=== PATIENT | female | born 1935 | race Caucasian/White ===

== ENCOUNTER 2016-11-28 11:30 | Observation (INO) | payer MEDICARE ==
[2016-11-28] VITALS (10 sets, daily range): BP systolic 128–195; BP diastolic 58–101; PULSE 70–82; RESP 12–22; O2SAT 95–100
[~2016-11-28] VITALS: Ht 177.8 cm; Wt 61.4 kg
[~2016-11-28 11:30] MED LIST: ATEN25TA PO; ATRV10T PO; AZU500 PO; ESCI5TAB10 PO; MIDO5TAB PO; RIVA20TA PO
--- NOTE | 2016-11-28 11:36 | ED.REPORT ---
HPI-Syncope Date of Service Nov 28, 2016 ED Provider: Yaya Tejada Patient is an 81 year old female with a history of syncope and dementia who presents to the ED via EMS s/p a syncopal episode. She lost consciousness while sitting but did not require CPR as she came to when she was laid down. Per family, she was slightly weak today. She denies feeling ill recently or hitting her head. She denies vomiting, pain, or any other symptoms. She was recently [facility]. Per , since her release 4 days ago she hasn't wanted to get out of bed or walk around. Per she has been saying she wants to . is adamant that she not get a CT head scan. Nursing Notes Stated Complaint: SYNCOPAL Chief Complaint: General Complaint Nursing Notes Reviewed: Yes Allergies: Coded Allergies: Cephalexin Monohydrate (Verified Allergy, Severe, rash and hives, 11/28/16) budesonide (Verified Adverse Reaction, Severe, confusion and moaning, 11/28) meloxicam (Verified Adverse Reaction, Severe, caused sig. flare of colitis , 11/28/16) NSAIDS (Non-Steroidal Anti-Inflamma (Verified Adverse Reaction, Unknown, ) Scheduled Atenolol (Atenolol) 25 Mg Tablet 25 MG PO DAILY Atorvastatin (Lipitor) 10 Mg Tab 10 MG PO HS Escitalopram Oxalate (Escitalopram Oxalate) 5 Mg Tablet 10 MG PO QAM Midodrine (Midodrine) 5 Mg Tablet 5 MG PO TID Rivaroxaban (Xarelto) 20 Mg Tablet 20 MG PO HS Sulfasalazine (Sulfasalazine) 500 Mg Tablet 500 MG PO BID General Time Seen by Provider: 11:35 Chief Complaint Became unresponsive Hx Obtained From: Spouse, EMS Arrived By: Ambulance Similar Sx Previous: Yes Past Medical History Past Medical History Notes: Previous suicide attempt with poly drug overdose Correction to medication list per : Talopram 10mg not 5mg Past Medical History Hypertension Collagenous Colitis Paroxysmal a-fib on Xarelto Right bundle-branch block Hyperlipidemia Anxiety Severe Depression History of posterior vitreous detachment Dementia Past Surgical History Right clavicle surgery Tonsillectomy Hysterectomy Left knee Reports: Appendectomy, Cataract surgery, Hysterectomy, Tonsillectomy Reports: Pacemaker insertion Family History Noncontributory Smoking History Former Smoker Social History The patient lives on [place] with her . Previous suicide attempt via drug OD. Alcohol Use: Denies alcohol use Drug Use: Denies drug use Other Social History: Good social support, Ambulatory Status Independent Review of Systems Unable to Obtain ROS Mental status Physical Exam Initial Vital Signs Vital Signs (First) Date Time Temp Pulse Resp B/P Pulse Ox O2 Delivery O2 Flow Rate FiO2 11/28/16 11:35 36.5 70 17 195/85 99 Room Air Initial VS: Reviewed Head / Eyes: Atraumatic, Normocephalic Neck: Full range of motion Skin: Warm, Dry General/Constitutional: Awake, Well developed Alertness: Positive: Confused Respiratory / Chest: No respiratory distress Cardiovascular: Heart rate NL Lower Extremity / Pelvis / MS: Atraumatic, No edema Neurologic: Speech NL, CN II - XII intact Mental Status: Positive: Confused Left Foot: Positive: Ecchymosis present Bruise on outside of L foot Interpretation & Diagnostics Lab Results Interpretation Result Diagram: 11/28/16 1211 11/28/16 1211 Test 11/28/16 12:11 11/28/16 12:22 White Blood Count 6.4th/mm3 (3.8-10.1) Red Blood Count 4.30mil/mm3 (3.90-5.20) Hemoglobin 13.4g/dL (12.0-15.6) Hematocrit 38.9% (35.0-46.0) Mean Corpuscular Volume 90.5fL (81-100) Mean Corpuscular Hemoglobin 31.2pg (27.0-35.0) Mean Corpuscular Hemoglobin Concent 34.4% (32.0-37.0) Red Cell Distribution Width 12.8% (12.3-15.4) Platelet Count 274bil/L (150-400) Neutrophils (%) (Auto) 62.9% (40-74) Lymphocytes (%) (Auto) 21.7% (14-46) Monocytes (%) (Auto) 12.6% (4-12) Eosinophils (%) (Auto) 0.3% (0-5) Basophils (%) (Auto) 0.6% (0-3) Sodium Level 139mEq/L (134-144) Potassium Level 4.1mEq/L (3.5-5.2) Chloride Level 100mEq/L (97-108) Carbon Dioxide Level 21mmol/L (18-29) Blood Urea Nitrogen 19mg/dL (8-27) Creatinine 0.70mg/dL (0.57-1.00) Estimat Glomerular Filtration Rate 115mL/min (>59) Glucose Level 101mg/dL (60-99) Calcium Level 9.5mg/dL (8.5-10.1) Magnesium Level 2.1mg/dL (1.6-2.6) Total Bilirubin 0.6mg/dL (0.0-1.2) Aspartate Amino Transf (AST/SGOT) 18U/L (0-50) Alanine Aminotransferase (ALT/SGPT) 19U/L (0-32) Alkaline Phosphatase 60U/L (25-165) Troponin T 0.010ug/L (0.0-0.011) Total Protein 6.9g/dL (6.4-8.4) Albumin 3.8g/dL (3.4-5.0) Urine Color Straw (YELLOW) Urine Appearance Hazy (CLEAR,HAZY) Urine pH 7.5 (5.0-8.0) Urine Specific [place] 1.010 (1.003-1.035) Urine Protein Negativemg/dL (NEG,TRACE) Urine Glucose (UA) Negativemg/dL (NEGATIVE) Urine Ketones Negativemg/dL (NEGATIVE) Urine Occult Blood Negative (NEGATIVE) Urine Nitrite Negative (NEGATIVE) Urine Bilirubin Negative (NEGATIVE) Urine Urobilinogen Normalmg/dL (NORMAL) Urine Leukocyte Esterase Negative (NEGATIVE) Urine RBC 0-2/hpf (0-2) Urine WBC 6-10/hpf (0-5) Urine Epithelial Cells Occasional/hpf (NONE-MOD) Urine Crystals None seen (NONE SEEN) Urine Bacteria Moderate/hpf (NONE-FEW) Urine Hyaline Casts None/lpf (NONE) Urine Granular Casts None seen (NONE SEEN) Urine Waxy Casts None seen (NONE SEEN) Urine Red Blood Cell Casts None seen (NONE SEEN) Urine White Blood Cell Casts None seen (NONE SEEN) Urine Mucus None seen (None Seen) Urine Trichomonas None seen (NONE SEEN) Urine Yeast None (NONE SEEN) Urinalysis Comment None Urine Culture Reflexed Indicated ECG Interpretation ECG Interpretation: Paced Rate 70 RBBB Time: 12:58 Interpreted by: ED physician X-Ray Chest Interpretation Chest Xray Interpretation: IMPRESSION: No acute cardiopulmonary disease. Dictated by: Román UMANA Interpreted: El Morrow MD on 11/28/2016 at 12:49 Transcribed by: MARCO on 11/28/2016 at 12:49 View: Portable Interpretation / Wet Read by: Interpret - Radiologist Re-Eval/Medical Decision Med Decision/Clinical Course Patient has had multiple visits for syncope as well as delirium and dementia, today has some question of urinary tract infection on a catheterized urinalysis in the way of 6-10 white cells and presence of moderate bacteria. This may account for some of the patient's symptoms. After discussion with the palliative care was consulted and ultimately recommend admit. Plan patient will be started on Bactrim and given some IV hydration. Source of Hx: Old records Re-Evaluation/Progress #1: Time of Eval: 13:44 Re-Evaluation/Progress Note: Discussed patient's case with . Re-Evaluation/Progress #2: Time of Eval: 16:36 Re-Evaluation/Progress Note: Discussed plan for admission with patient's . He understands and agrees with plan. All questions addressed at this time. Consultation #1: Referral / Consult Name: Vijay Sharma Call Returned at: 14:34 Note: Discussed patient's case. Will call back. Consultation #2: Referral / Consult Name: Vijay Sharma Call Returned at: 15:54 Blow Molding Machine Tender: Will see patient Note: Zachary is in department to see patient and discuss plan of action with patient's . after seeing the patient recommends admission Consultation #3: Referral / Consult Name: Almaz Lopez MD Consulted With: Hospitalist Call Returned at: 16:14 Blow Molding Machine Tender: Will see patient, Agrees with eval, Agrees with plan, Accepts admit Note: Discussed patient's case. Accepts admit. Counseled Regarding: Diagnosis, Lab results, Need for admission Discharge & Departure Impression: Primary Impression: Altered mental status Additional Impressions: Syncope UTI (urinary tract infection) Disposition: ADMITTED TO HOSPITAL Referrals: Kenneth Randhawa MD (PCP) Scribe Attestation Portions of this note were transcribed by Aleksandra Carrasco. I, Dr. Tejada personally performed the history, physical exam and medical decision-making; I reviewed and confirmed the accuracy of the information in the transcribed note. Signed by: Aleksandra Carrasco 11/28/16, [id number] copies to: Kenneth Randhawa MD, Timothy S DO Nov 28, 2016 11:36 ALEKSANDRA CARRASCO Nov 28, 2016 12:04
[2016-11-28 12:22] LABS: BASOPHILS % (AUTO) 0.6 % (0-3); EOSINOPHILS % (AUTO) 0.3 % (0-5); MONOCYTES % (AUTO) 12.6 % (4-12); Mean Corpuscular Hemoglobin 31.2 pg (27.0-35.0); Mean Corpuscular Volume 90.5 fL (81-100); NEUTROPHILS % (AUTO) 62.9 % (40-74); Platelet Count 274 bil/L (150-400)
[2016-11-28 12:42] LABS: APPEARANCE,URINE HAZY (CLEAR,HAZY); COLOR,URINE STRAW (YELLOW); OCCULT BLOOD,URINE NEGATIVE (NEGATIVE); PH,URINE 7.5 (5.0-8.0); UROBILINOGEN,URINE NORMAL (NORMAL)
--- NOTE | 2016-11-28 12:50 | DRSVH ---
PROCEDURE: X-RAY CHEST ONE VIEW, PORTABLE ([id number]) INDICATIONS: weakness TECHNIQUE: One view of the chest was acquired. COMPARISON: [facility], CR, XR CHEST 1VW (PORTABLE), 10/31/2016, 16:48. FINDINGS: Surgical changes and devices: Stable positioning of dual chamber left cardiac pacer and fixation hard cancino involving the right clavicle. Lungs and pleura: No pleural effusions or pneumothorax. Lungs are clear. Mediastinum: Mediastinal contours appear normal. Heart size is normal. Bones and chest wall: No suspicious bony lesions. Overlying soft tissues appear unremarkable. IMPRESSION: No acute cardiopulmonary disease. Dictated by: Román Finch RREduard Interpreted: El Morrow MD on 11/28/2016 at 12:49 Transcribed by: MARCO on 11/28/2016 at 12:49 Approved by: El Morrow M.D. on 12/02/2016 at 11:33
[2016-11-28 13:19] LABS: Magnesium 2.1 mg/dL (1.6-2.6); TROPONIN T 0.01 ug/L (0.0-0.011)
[2016-11-28] MEDS ORDERED: Trimethoprim-Sulfa 160 mg-800 mg Tablet PO ONE (16:15)
[2016-11-28] MEDS ORDERED: 0.9% Sodium Chloride 1,000 ML IV ONE (16:15)
[2016-11-28] MEDS ORDERED: Alum-Mag Hydrox-Simeth 30 mL Suspension PO PRN (16:35)
[2016-11-28] MEDS ORDERED: Ondansetron 2 mg/mL 2 mL Inj IVPUSH PRN (16:35)
--- NOTE | 2016-11-28 18:13 | PCM.CONPAL ---
Date of Service Nov 28, 2016 Date of Hospital Admission: Nov 28, 2016 Date of Palliative Consult: Nov 28, 2016 Requesting Provider: Yaya Tejada DO Comment: MD/ ED asked PC to see patient at 's request; Reason Palliative Care Consult: Goals of Care Discussion, Other (help with placement decisions/ possible hospice) Hospital Unit @time of consult: Emergency Department Palliative Care Recommendation This is an 81 F brought to ED per 911 due to repeated episodes of syncope today , supposed hypotension in the home. see multiple notes from previous admissions/ observations in [facility]. Family/ unable to move her, provide safe care. Summary of palliative recommendations: Per prior palliative care assessments in combination with today's visit: Depression- (per Dr. Carvalho 09/28): some concern with sense of worsening with antidepressants. Consider restarting antipsychotic as mood stabilizer. She has no psychotic sx. Would consider ongoing therapy. Would continue with ongoing psychiatric follow- up. Consider complete outpatient neuro psych evaluation 11/28/16: Revisit concern about increased/ continued depression. Follow up on neuropsych eval to see if this was done. Cognition- (per Dr. Carvalho 09/28): I think there is more of a cognitive decline and neurodegenerative process to her depression and disability than thought. Will begin aricept at 5 mg daily with goal to have this increased to 10 mg if no SE after a few weeks. Still may benefit from low dose methylphenidate-like 5 mg QAM but would postpone 11/28/16: Pt is calm and able to answer my questions appropriately. I see notes regarding evaluation for dementia recently which was negative. Symptoms continue to be confounding and related to syncopal/hemodynamic issues. Continue to monitor. Gait instability/ risk of falls from possible syncope. - Apparently interrogation of pacemaker does not support cardiac arrhythmia as cause of syncope. Does have orthostatic drop. Consider tolerating higher BP at baseline. Some concern that worsened orthostasis may come with worsened diarrhea. Need confirmation from cardiology re opinion on syncope Consider use of florinef. Diarrhea with past history of collagenous colitis sulfasalazine has been restarted. We will monitor diarrhea. No BM now for 3 days Goals of care-both and daughters are hopefully patient can be at SNF for a period of time. This would ensure medication compliance. She might also qualify for mental health follow-up in retirement.. Family also believes that eventually patient would go home with assistance of caregivers rather then assisted care. Patient would benefit from assisted care setting due to increase in socialization and assurance of medication compliance -DPOA/Advanced Directives/POLST- states advanced directive completed for both of them and both indicate request for no long-term heroics. Reviewed question of CODE STATUS in hospital and he believes it appropriate for DNR/DNI and he states this is based on the quality of her life at present. -Disposition: Pt to be admitted per Dr. Tejada; patient will be followed by palliative care team during this admission. Patient Goals: 1. Patient wants mostly to be home but is adamant that he can no longer care for her. They are looking for transition to LTC. asking for hospice but it is unclear, doubtful, that she meets criteria at this time . Problems: End of Life Preferences no life-prolonging interventions beyond basic treatment for reversible conditions. Goals of Care to have care managed by a skilled team if possible; family requesting assistance with progressive symptom and care needs. Disposition possible placement vs home with additional care providers. Resuscitation Status Resuscitation Status: DNR/DNI:Do Not Resuscitate/Intubate . Pain: Mild Symptom management: Depression, Agitation Pt History History of Present Illness 81 F brought to ED per 911 due to repeated episodes of syncope, hypotension in the home. see multiple notes from previous admissions/observations in [facility]. Family/ unable to move her, provide safe care. Pt seen by Dr. Carvalho in September--see PC recommendations listed again in this note above. 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 Carvalho's consult from September: 61 yrs EXsmoker-quit 10-12 yrs ago. ETOH: usually 3 bvg/night but stopped totally 3 yrs ago. Her continues to drink mod to excess in the concepcion as per his daughters. some concern for his care for patient after he starts drinking. No hx of violence but he can get impatient. Living Situation: recently ( 4 days ago) discharged from [facility], returning home with . Responsive Patient Symptoms Pain (current): None Pain (minimum): None Pain (maximium): Mild Tiredness/Fatigue: Mild Nausea: None Depression: Moderate (severe at times per ; has asked him to leave gun where she can reach it.) Anxiety: Mild Drowsiness/Sleepiness: Mild Anorexia: None Shortness of Breath: None Delirium multiple records point to delirium with outbursts in past records--not present at this time. Palliative Performance Scale PPS Patient Status: Baseline PPS Ambulation: Mainly Sit/Lie PPS Activity: Unable to do any work PPS Self-Care: Occasional assistance necessary PPS Intake: Normal or reduced PPS Conscious Level: Full or confusion Performance Scale: 50% ADLs ADL Patient Status: Current ADL Ambulation: Mainly Bed ADL Dressing: Considerable assistance required ADL Feeding: Considerable assistance required ADL Hygene/bathing: Considerable assistance required ADL Transfers: Considerable assistance required Allergy Allergies Reviewed: Yes Medications Current Medications: Current Medications Sodium Chloride 1,000 ml @ 100 mls/hr Q10H IV; Start 11/28/16 at 16:15 Scheduled Atenolol (Atenolol) 25 Mg Tablet 25 MG PO DAILY Atorvastatin (Lipitor) 10 Mg Tab 10 MG PO HS Escitalopram Oxalate (Escitalopram Oxalate) 5 Mg Tablet 10 MG PO QAM Midodrine (Midodrine) 5 Mg Tablet 5 MG PO DAILY Rivaroxaban (Xarelto) 20 Mg Tablet 20 MG PO HS Sulfasalazine (Sulfasalazine) 500 Mg Tablet 500 MG PO BID Scheduled PRN Ondansetron (Zofran) 4 Mg Tablet 4 MG PO Q4H PRN PRN For Nausea Objective Findings Exam Vital Sign - Last Date Time Temp Pulse Resp B/P Pulse Ox O2 Delivery O2 Flow Rate FiO2 11/28/16 15:00 71 12 128/58 98 Room Air 11/28/16 11:35 36.5 General: Alert/Oriented x3 HEENT: Atraumatic, Scleral Anicteric Heart: Exam Unremarkable Lungs: Clear to Auscultation Abdomen: Benign Neuro: Other Extremities: Pulses Palpable x4 Lab/Diagnostics Lab and Imaging results reviewed in detail in EMR. Patient/Family Conference Members Present Family Members Present patient and in ED. Medical Team Members Present? Vijay VASQUEZ, Dr. Serjio Montgomery Discussion/Goals of Care Discussion Reason for consult-goals of care Interview with her in ED 81 yo female patient previously established with Dr. Cecilia Randhawa, now with Dr. More for Primary Care who was admitted through the ER after a falls/syncope at home. Listed, prior admissions including a psych adm in March. Her states that the patient has been steadily declining since she had her pacemaker placed about 14 months ago. 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 She sleeps for 10 hours-has breakfast and then sits in her recliner and does not interact. She seems to perseverate on being avoided because she smells or something she did. Her family feels her meds have only made her worse. 1 daughter thinks the quetiapine helped the pt not perseverate and focus. She has hx of syncope and labile BP. She had passed out--while sitting a few times since fall. The notes that during these episodes, like the one earlier today, her BP is low-- like 60s/40s he states-- but this is resolved now in the ED. Pt and report continued good appetite. Used to walk 5 miles in a day and now can barely walk 100 ft and that very slowly and with a walker and somewhat shuffling. No other specific complaint. She has a long hx of colitis-dx collagenous about 4-5 years ago. She had been on sulfasalazine for years--stopped about 1 yr ago with freq to intermittent diarrhea. Given MMSE with psych hosp and supposedly scored well. Her states she had similar testing by [facility] and [facility] face of clock backwards. Today she knows her name, date, place, President [facility]. Palliative Care counselled: See prior notes by Dr. Carvalho. Address depression and possible additional services. Time spent Total time 70 minutes; >50% face to face with patient and/or family, providing counselling regarding plans and recommendations, and in care coordination with his/her medical teams. Of this 30 minutes is spent counseling for advanced care planning with the patient/the patients family/the surrogate decision maker. Attending Statement The patient was seen and examined together with Dr. Aaron Montgomery on November 28, 2016 and I have added additional information to the note above. copies to: Oneal Xiong DO; Kellie Carvalho MD, Sharmon M. ARNP Nov 28, 2016 16:54 his/her medical teams. Of this 30 minutes is spent counseling for advanced care planning with the patient/the patients family/the surrogate decision maker. Vijay Sharma Nov 28, 2016 16:54
[2016-11-28] MEDS ORDERED: levoFLOXacin Inj 250 MG in IV Premix 1 EACH IV SCH (18:15)
--- NOTE | 2016-11-28 18:20 | NUR ---
Admit Pt admitted via stretcher from ER at 1740. a&Ox3, able to ambulate to bed. BP 192/101, HR 82, RR 22-26, temp 36.4. Placed on 2L NC. pt stating some SOB. Dr. Jessica soler at 1805 and notified of VS. Metoprolol 5mg IV x1now and [id number] now ordered. Addendum: 11/28/16 at 1849 by EAN MARIEE RN RT notified at 1830
[2016-11-28] MEDS ORDERED: MeTOProlol 1 mg/mL 5 mL Inj IVPUSH ONE (18:35)
[2016-11-28] MEDS ORDERED: Albuterol-Ipratropium 3 mL Inhalation Solution NEB ONE (18:35)
[2016-11-28] MEDS: Heparin 5,000 Unit/mL Inj SUBQ SCH ×2 (18:55→21:47)
[2016-11-28 19:37] LABS: TROPONIN T < 0.010 ug/L (0.0-0.011)
[2016-11-28] MEDS ORDERED: MIDO5TAB PO (19:45)
--- NOTE | 2016-11-28 19:52 | PCM.HPMED ---
Subjective Date of Service Nov 28, 2016 Primary Provider: Admitting Physician: Almaz Lopez MD Primary Care Physician: Kenneth Randhawa MD Attending Physician: Almaz Lopez MD History of Present Illness: HISTORY was OBTAINED FROM PATIENT / MEDITECH NOTES History of present illness 81-year-old female, recurrent syncope/pacer, [facility] from [facility] facility 4 [facility] (multiple stays in 2016), progressively weaker at home to the point of using wheelchair instead of walker, found slumped over today (last admission 10/31/2016 found slumped over w/ seizure like activity) with generalized weakness progressing. Progressive decline since 2015 when pacer was placed. Associated hypertension. During 09/2016 delirium hospitalization, midodrine had been started and atenolol had been continued. echo 10/2016 admission w/ normal EF. IN ER, bactrim started for UTI and Per Palliative consult in the ER, hypotension is due to dysautonomic syndrome. NO Bm in 3 days per ER notes. In the [facility], she was noted to be breathing heavily though asymptomatic of air hunger, RR20, BP 190/101 HR 80, s/p 5metoprolol, improved to SBP 160s Review of Systems - she indicates that her told her that she passed out again. no pain. no SOB. constipated x 3 days. no dysuria. FAMILY HX no recurrent UTIs SOCIAL HX distant smoker distant alcohol MEDICATIONS Atenolol (Atenolol) 25 Mg Tablet 25 MG PO DAILY Atorvastatin (Lipitor) 10 Mg Tab 10 MG PO HS Escitalopram Oxalate (Escitalopram Oxalate) 5 Mg Tablet 10 MG PO QAM Midodrine (Midodrine) 5 Mg Tablet 5 MG PO TID Rivaroxaban (Xarelto) 20 Mg Tablet 20 MG PO HS Sulfasalazine (Sulfasalazine) 500 Mg Tablet 500 MG PO BID Past Medical History Previous suicide attempt with poly drug overdose 03/2016Severe Depression Hypertension Collagenous Colitis Paroxysmal a-fib on Xarelto Right bundle-branch block Hyperlipidemia Anxiety History of posterior vitreous detachment Recurrent UTI Orthostatic hypotension dysautonomic syndrome Suspect at least moderate cognitive impairment, though has indicated before that she has been tested in the past and does not carry the diagnosis, refused CT per ER doctor Gait instability and increased risk of fall Past Surgical History Right clavicle surgery Tonsillectomy Hysterectomy Left knee Reports: Appendectomy, Cataract surgery, Hysterectomy, Tonsillectomy Reports: Pacemaker insertion Allergies Coded Allergies: Cephalexin Monohydrate (Verified Allergy, Severe, rash and hives, 11/28/16) budesonide (Verified Adverse Reaction, Severe, confusion and moaning, 11/28) meloxicam (Verified Adverse Reaction, Severe, caused sig. flare of colitis , 11/28/16) NSAIDS (Non-Steroidal Anti-Inflamma (Verified Adverse Reaction, Unknown, ) PMH Social History Hx Alcohol Use: No Hx Substance Use: No Smoking Status: Former Smoker Exam Vital Signs Vital Sign - Last Date Time Temp Pulse Resp B/P Pulse Ox O2 Delivery O2 Flow Rate FiO2 11/28/16 19:07 72 167/78 11/28/16 18:54 18 96 Nasal Cannula 2.00 11/28/16 18:03 36.5 Lab and Diagnostics Labs Exam on admission 2L NC NAD A and O x 3 mood affect WNL NC/AT no icterus no injected eyes EOMI PERRL /no pharyngeal lesions/ no oral lesions / hearing intact Supple neck CTAB equal chest rise / no accessory muscle use / speaks in full sentences - heavy breathing not labored/ no rrw RRR S1 S2 / no mrg / 2+ radial pulses Soft nt nd + BS no hepatosplenomegaly No edema no cyanosis no ecchymosis of lower extremities No rash / no jaundice CHARLES EKG apaced 70 RBBB CXR neg acute findings UA leukocyte Estrace positive bacteria positive Trop x 2 neg Result Diagram: 11/28/16 1211 11/28/16 1211 Assessment & Plan Active issues and reason for admission 81-year-old female with recurrent syncope due to dysautonmic syndrome/HTN/pacer/ afib-xarelto, found to have recurrent UTI and associated hypoxia. Hypoxia. likely due to debility/UTI. wean O2 as tolearted. prn dunoeb. normal EF 10/2016, normla BNP. Syncope/Hypotension, likely due to UTI. s/p bactrim in ER, levaquin now, u cx pending Chronic POA Hypertension Orthostatic hypotension dysautonomic syndrome Collagenous Colitis Paroxysmal a-fib Hyperlipidemia Anxiety Suspect at least moderate cognitive impairment, though has indicated before that she has been tested in the past and does not carry the diagnosis, refused CT per ER doctor, Gait instability multiple SNF hospitalizations 2016 --resume home meds, PRN metoprolol/hydralazine, continue atenolol and midodrine w/ holding parameters --constipated x 3 days, prn senna Diet cardiac DVT prophylaxis lovenox /xarelto Code DNR/DNI Disposition inpt status Assessment and plan were discussed with patient. Palliative care was consulted in the emergency department and palliative care discussed long -term placement. Resuscitation Status: DNR/DNI:Do Not Resuscitate/Intubate Almaz Lopez MD Nov 28, 2016 19:52 hypoxia. likely due to debility/UTI. wean O2 as tolearted. prn dunoeb Hypotension, likely due to UTI. s/p bactrim in ER, tashia now, tele Chronic issues known prior to admission, present on admission Hypotension, midodrine with holding parameters Hypertension, home atenolol when necessary metoprolol Diet cardiac DVT prophylaxis lovenox Code DNR/DNI Disposition OBS status Assessment and plan were discussed with patient. Palliative care was consulted in the emergency department and palliative care discussed long -term placement. has declined head CAT scans multiple times previously. Resuscitation Status: DNR/DNI:Do Not Resuscitate/Intubate Almaz Lopez MD Nov 28, 2016 19:52
[2016-11-28] MEDS ORDERED: MeTOProlol 1 mg/mL 5 mL Inj IVPUSH PRN (19:55)
[2016-11-28] MEDS: Sulfasalzine 500 mg Tablet PO SCH (21:43)
[2016-11-28] MEDS: 0.9% Sodium Chloride 1,000 ML IV SCH (21:44)
[2016-11-28] MEDS: D5 0.45% NaCl + KCl 20 mEq/L 500 ML IV SCH (21:44)
[2016-11-29] VITALS (14 sets, daily range): BP systolic 104–196; BP diastolic 58–92; PULSE 56–79; RESP 16–20; O2SAT 96–100
[2016-11-29] MEDS: Heparin 5,000 Unit/mL Inj SUBQ SCH (00:44)
[2016-11-29] MEDS: 0.9% Sodium Chloride 1,000 ML IV SCH ×2 (00:53→14:24)
[2016-11-29 02:59] LABS: BASOPHILS % (AUTO) 0.4 % (0-3); EOSINOPHILS % (AUTO) 1.1 % (0-5); MONOCYTES % (AUTO) 13.5 % (4-12); Mean Corpuscular Hemoglobin 31.1 pg (27.0-35.0); Mean Corpuscular Volume 92.4 fL (81-100); NEUTROPHILS % (AUTO) 52.9 % (40-74); Platelet Count 289 bil/L (150-400)
[2016-11-29] MEDS: D5 0.45% NaCl + KCl 20 mEq/L 500 ML IV SCH (05:35)
--- NOTE | 2016-11-29 07:08 | NUR ---
Admission note / HTN Pt was admitted to [facility] shortly prior to my shift. Pt is forgetful and confused and unable to provide accurate info. Admission assessment and screening completed. Info obtained from previous visit. Pt was up to BSC with one extensive assistance. Overnight pt clearing up, she more appropriate and coherent. VSS except elevated BP. Pt asymptotic. Lopressor IVP given. BP trending down. No overt complications noted.
[2016-11-29] MEDS: Sulfasalzine 500 mg Tablet PO SCH ×2 (09:34→21:00)
--- NOTE | 2016-11-29 11:12 | NUR ---
Case Management: Nursing providing care to patient. S/w pt's at 11:00 am, provided KATZ and Medicare Part D info, all questions answered. Copy provided to , original KATZ paperwork placed on pt hard chart. BTMARLENE tucker RN
--- NOTE | 2016-11-29 11:26 | NUR ---
Called and spoke with Chiquita in admissions at [facility] [phone] and she believes patient did come from them. She needed to go to the office and double check and then call me back. Updated SPRING CLIPPER
--- NOTE | 2016-11-29 13:03 | NUR ---
Blood pressure Pt's blood pressure was 187/92 this morning, HR was 65. Midodrine was held this morning due to SBP>150. Afternoon blood pressure was 125/58. Orthostatic blood pressure was checked; 141/71 laying down, 104/63 sitting, and 108/63 standing. First dose of amlodipine given per orders. Addendum: 11/29/16 at 1443 by THERESE CLAUDIO RN Pt refused amlodipine. Also refused scheduled midodrine at this time stating, "I would like to think about it for a couple of hours." Current BP is 138/78 at 1430. Addendum: 11/29/16 at 1753 by THERESE CLAUDIO RN Pt reconsidered and decided she did want to take amlodipine so that was given. At 1830 midodrine was held as BP was 170/74.
--- NOTE | 2016-11-29 15:41 | NUR ---
Evaluation completed. Please go to "Notes" then click on "Assessments and Notes" (bottom left corner of screen). Then select appropriate discipline tab on top of screen.
--- NOTE | 2016-11-29 16:37 | NUR ---
Social Work-initial assessment. Data&assessment:Pt is a 81 y/o female who was admitted on 11/28/16 for UTI per H&P. Pt's insurance is [facility] and PCP is Kenneth Randhawa Md. EMR Reviewed. SW attempted to complete assessment, but PT in working with pt. SW placed a call to Stephan and left message, no return call. SW to follow up tomorrow and complete assessment. SW will continue to follow. Plan:SW to follow up with pt and tomorrow to complete assessment.PT evaluation is pending. SW will continue to follow. ARISTIDES Lopez
--- NOTE | 2016-11-29 17:08 | PCM.PNMED ---
Subjective Date of Service Nov 29, 2016 Subjective 81-year-old woman with cognitive impairment, depression, somatization, recurrent UTIs and failure to thrive presents with encephalopathy and fatigue. describes episode of patient doing extremely weak and poorly responsive sitting at table on day of admission. States that she was not energetic since discharge from correction facility 5 days ago. Patient denies urinary tract or any other focal symptoms. She actually seems more alert today compared to past episodes. Exam Vital Signs Vital Sign - Last Date Time Temp Pulse Resp B/P Pulse Ox O2 Delivery O2 Flow Rate FiO2 11/29/16 16:29 Supplement Oxygen 11/29/16 14:30 79 138/78 11/29/16 12:22 36.8 16 96 11/29/16 06:12 2.00 Intake and Output 11/28/16 11/28/16 11/29/16 Cumulative From/Thru 15:00 23:00 07:00 11/28/16 11:35 - 11/29/16 06:17 Intake Total 1000 ml 999 ml 416 ml 2415 ml Output Total 1400 ml 1400 ml Balance 1000 ml 999 ml -984 ml 1015 ml Intake IV Total 1000 ml 999 ml 416 ml 2415 ml Output Urine Total 1400 ml 1400 ml Exam General: Pale elderly woman, conversing appropriately, no acute distress HEENT: sclerae anicteric, oral mucosa moist Neck: no JVD Chest: clear to auscultation Cardiac: S1S2, regular Abdomen: BS normal, non-tender Extremities: No pedal edema Neuro: A&O, mild facial bradykinesia, cranial nerves symmetric, motor strength and coordination normal, no cogwheeling or rigidity IVs and Medications Medications Reviewed: Medications were reviewed in detail Lab and Diagnostics Result Diagram: 11/29/1621411/29/16214 Assessment & Plan 81-year-old female with recurrent pre-syncope and transient encephalopathic episodes of uncertain cause, presents with weakness and reduced mental status. She was reportedly hypoxic per previous notes but there is no documentation and her current cardiorespiratory status is normal. She was reported to be syncopal but does not confirm this, and she has a long history of episodic unresponsiveness. Her underlying complex conditions include dementia, depressed affect and weakness. Acute, active and/or high risk problems: #Urinary tract infection - pyuria is marginal, urine culture is negative, she is asymptomatic. She is chronically mildly abnormal UAs. - No indication for antibiotic treatment at this time #Hypoxia. Apparently resolved. - Follow clinically #Pre-syncope, encephalopathy. Her spells of unresponsiveness or part of a chronic condition which seems likely neurodegenerative in origin - EEG ordered - Orthostatic blood pressures ordered - She has outpatient neurology referral scheduled - Palliative care consult, they have previously consulted in her case. # Inadequate healthcare support. Her declining mental status and functional status appear to be too much for her . - Care management consult Resolved, chronic and/or stable issues: Hypertension Orthostatic hypotension dysautonomic syndrome Collagenous Colitis Paroxysmal a-fib Hyperlipidemia Anxiety DVT prophylaxis- continue her prior 00 Code DNR/DNI Pain Evaluation: Adequate Pain Control VTE Prophylaxis: Other Resuscitation Status: DNR/DNI:Do Not Resuscitate/Intubate Time spent 35 minutes spent in patient assessment in care coordination including review of data with consultants. Garry Banks MD Nov 29, 2016 17:08
--- NOTE | 2016-11-29 18:27 | PCM.PALLBR ---
Palliative Care Recommendation This is an 81 F brought to ED per 911 due to repeated episodes of syncope today , supposed hypotension in the home. see multiple notes from previous admissions/ observations in [facility]. Family/ unable to move her, provide safe care. Summary of palliative recommendations: 11/29/16-Goals of care established-she is DNR/DNI and limited interventions and she agrees this is her decision. Syncope -wondering about petite mal SZ. She does have appt with Dr. More next month-she is unsure of date. Unclear if can get EEG done prior. I will call Dr. More and review. Check orthostatic BP-to standing position but I suspect this will not be cause since this episode happened while sitting. Delirium-now cleared. Might still benefit from neuropsych testing. Will start with neuro consult. Agree with Dr. Jones's plan for starting aricept and considering methylphenidate. Depression-new in onset per pt. Disposition-an issue with her finding that he cannot help her enough at home-chad with recurrent syncope. CM/SS to assist. I do not think she qualifies for hospice so that additional support is not available at this time. Per prior palliative care assessments in combination with today's visit: Depression- (per Dr. Carvalho 09/28): some concern with sense of worsening with antidepressants. Consider restarting antipsychotic as mood stabilizer. She has no psychotic sx. Would consider ongoing therapy. Would continue with ongoing psychiatric follow- up. Consider complete outpatient neuro psych evaluation 11/28/16: Revisit concern about increased/ continued depression. Follow up on neuropsych eval to see if this was done. Cognition- (per Dr. Carvalho 09/28): I think there is more of a cognitive decline and neurodegenerative process to her depression and disability than thought. Will begin aricept at 5 mg daily with goal to have this increased to 10 mg if no SE after a few weeks. Still may benefit from low dose methylphenidate-like 5 mg QAM but would postpone 11/28/16: Pt is calm and able to answer my questions appropriately. I see notes regarding evaluation for dementia recently which was negative. Symptoms continue to be confounding and related to syncopal/hemodynamic issues. Continue to monitor. Gait instability/ risk of falls from possible syncope. - Apparently interrogation of pacemaker does not support cardiac arrhythmia as cause of syncope. Does have orthostatic drop. Consider tolerating higher BP at baseline. Some concern that worsened orthostasis may come with worsened diarrhea. Need confirmation from cardiology re opinion on syncope Consider use of florinef. Diarrhea with past history of collagenous colitis sulfasalazine has been restarted. We will monitor diarrhea. No BM now for 3 days Goals of care-both and daughters are hopefully patient can be at SNF for a period of time. This would ensure medication compliance. She might also qualify for mental health follow-up in retirement.. Family also believes that eventually patient would go home with assistance of caregivers rather then assisted care. Patient would benefit from assisted care setting due to increase in socialization and assurance of medication compliance -DPOA/Advanced Directives/POLST- states advanced directive completed for both of them and both indicate request for no long-term heroics. Reviewed question of CODE STATUS in hospital and he believes it appropriate for DNR/DNI and he states this is based on the quality of her life at present. Patient Goals: 1. Patient wants mostly to be home but is adamant that he can no longer care for her. They are looking for transition to LTC. asking for hospice but not sure if she meets criteria. Additional Medical Diagnoses with primary management by Hospitalist team include : Problems: End of Life Preferences DNR/DNI Resuscitation Status Resuscitation Status: DNR/DNI:Do Not Resuscitate/Intubate POLST Updates/Changes Artificially Admin Nutrition: No Artifical Nutrition by Tube . Symptom management: Depression Total time [45 ] minutes; >50% face to face with patient and/or family, providing counselling regarding plans and recommendations, and in care coordination with his/her medical teams. Including discussion with Dr. Banks, and nursing. Will review with Dr. More ( office closed) I also spent an additional [ ] minutes counseling for advanced care planning with the patient/the patients family/the surrogate decision maker. Palliative Brief Note Date of Service Nov 29, 2016 . 81 yo female pt followed by Dr. Randhawa past but most recently by Dr. Gil Kennedy at [facility] where she was for about 3 weeks-with rehab/PT able to get up in her room without assist- used a walker. did get IV fluids for 1-2 days thought dehydrated ?etiology (possibly diarrhea) but then did fine and was discharged to home 4-5 days prior to her readmission here. She again had another syncopal spell this time while sitting and there was not trauma. She has had these without evidence of sz activity and interrogation of her pacer does not seem to indicate dysrhythmia as the cause. She has had times after with marked confusion and agitation and times without. At her last hospitalization she had days of what appeared to be delirium. She has severe depression and has been getting therapy in [place] which she feels has been helpful. She had a brief psych hospital stay for this. O: she is in bed, recognizes me by name, very soft spoken but spontaneous in speech, well spoken and appropriate. OX3 She has excellent recall of time at [facility]-describes progress in PT, Able to walk with walker but independently etc. fairly flat affect, no tremor BP range 108 to 175/ systolic lungs clear UA- WBC 6-10 and culture mixed marisol WBC normal Kellie Carvalho MD Nov 29, 2016 18:27
--- NOTE | 2016-11-29 18:40 | NUR ---
Mobility Pt has been up to the bathroom as a 1 person minimum assist with a FWW. She ambulated in the hallway with staff x1 today, she tolerated it well. No dizziness, no SOB.
[2016-11-29] MEDS: hydrALAZINE 20 mg/mL Inj IV PRN (23:35)
[2016-11-30] VITALS (8 sets, daily range): BP systolic 114–175; BP diastolic 64–81; PULSE 66–91; RESP 16–18; O2SAT 96–98
--- NOTE | 2016-11-30 06:07 | NUR ---
Blood Pressure Orthos x1 done this shift, sittin/, standin/54, layin/76.
[2016-11-30] MEDS: Sulfasalzine 500 mg Tablet PO SCH ×2 (08:52→20:36)
--- NOTE | 2016-11-30 13:46 | NUR ---
Social Work: Initial Assessment Data: Pt is an 81 y/o female admitted for UTI, AMS. Pt's PCP is Dr Xiong, pt's insurance is [employer]. Readmit score is 5. EMR reviewed. SYSTEMS APPLICATIONS PROGRAMMING LEAD met with pt's spouse, role explained. Pt's spouse states that pt lives at home with him in a single story home with one step to enter. Pt uses a walker at baseline. Pt's spouse states that he is the DPOA, pt does not drive, no LTC or VA benefits, and pt is not a caregiver for anyone. Pt has history at [facility] and with [facility]. SYSTEMS APPLICATIONS PROGRAMMING LEAD informed pt's spouse that pt will not qualify for SNF stay, but could go private pay. SYSTEMS APPLICATIONS PROGRAMMING LEAD also gave him a Senior Resource booklet and suggested he call private pay caregivers to see if he is interested in this at d/c. Pt's spouse agreeable. SYSTEMS APPLICATIONS PROGRAMMING LEAD will continue to follow. Assessment: Pt who has caregiving at baseline. Plan: Pt will likely d/c home via POV with spouse and resume [facility], or go to SNF private pay. SYSTEMS APPLICATIONS PROGRAMMING LEAD will continue to follow. ARISTIDES Donaldson Addendum: 11/30/16 at 1404 by SKYLER CAMARENA Amended: Links added.
--- NOTE | 2016-11-30 15:10 | NUR ---
Social Work: Readiness for d/c Data: Pt is on day 2 of hospitalization. EMR reviewed. notified CAT SITTER that pt is likely ready for d/c on 12/01. CAT SITTER called pt's spouse, no answer, CAT SITTER left a message letting him know that pt is likely ready for d/c tomorrow. CAT SITTER will continue to follow. Plan: Pt will likely d/c home via POV with spouse or to SNF private pay when medically stable. CAT SITTER will continue to follow. ARISTIDES Donaldson
--- NOTE | 2016-11-30 17:46 | NUR ---
Pt would benefit from having her shoes and (R) AFO for safe progression of gait w/physical therapy; pt normally wears for all OOB activity at home.
--- NOTE | 2016-11-30 18:07 | NUR ---
Activity/Family concerns Patient ambulated from bed to bathroom without any difficulty, denies dizziness. Able to work with PT today and walk in the hallways. Spoke with this afternoon over the phone expressing concerns of can not take care of his at home. Options was given by forensic social worker today and will work some plans in the morning to meet her needs. Will continue to monitor.
--- NOTE | 2016-11-30 20:16 | PCM.PNMED ---
Subjective Date of Service Nov 30, 2016 Subjective Patient was seen and examined at bedside. Patient does seem to be mildly confused however denies any current chest pain shortness of breath. Exam Vital Signs Vital Sign - Last Date Time Temp Pulse Resp B/P Pulse Ox O2 Delivery O2 Flow Rate FiO2 11/30/16 18:51 36.4 91 18 114/81 96 Room Air 11/29/16 06:12 2.00 Intake and Output 11/29/16 11/29/16 11/30/16 Cumulative From/Thru 15:00 23:00 07:00 11/28/16 11:35 - 11/30/16 05:46 Intake Total 1340 ml 250 ml 4005 ml Output Total 800 ml 550 ml 2750 ml Balance 540 ml -300 ml 1255 ml Intake Oral 720 ml 250 ml 970 ml IV Total 620 ml 3035 ml Output Urine Total 800 ml 550 ml 2750 ml # Bowel Movements 1 1 Exam Physical Exam: GEN: Patient was awake, alert, responding appropriately to questions HEENT: PERRLA, EOMI, Neck soft supple, trachea midline, nomocephalic/atraumatic CV: +S1/S2, RRR, no murmurs auscultated Respiratory: CTAB, no wheezes, rales, rhonchi GI: +bowel sounds x4, soft, compressible, non TTP EXT: no c/c/e Neuro: CN II-XII grossly intact Psych: mood and affect were appropriate IVs and Medications Medications Reviewed: Medications were reviewed in detail Medications Current Medications Enoxaparin Sodium 40 mg DAILY SUBQ; Start 11/29/16 at 08:30; Stop 11/29/16 at 17 :08; Status DC Atenolol 25 mg DAILY PO Last administered on 11/30/16 08:53; Admin Dose 25 MG; Start 11/29/16 at 08:30 Atorvastatin Calcium 10 mg HS PO Last administered on 11/29/16 21:00; Admin Dose 10 MG; Start 11/28/16 at 21:00 Midodrine 5 mg TID PO Last administered on 11/28/16 21:43; Admin Dose 5 MG; Start 11/28/16 at 20:30; Stop 11/29/16 at 15:04; Status DC Sulfasalazine 500 mg BID PO Last administered on 11/30/16 08:52; Admin Dose 500 MG; Start 11/28/16 at 20:30 Escitalopram Oxalate 10 mg DAILY PO Last administered on 11/30/16 08:53; Admin Dose 10 MG; Start 11/29/16 at 08:30 Rivaroxaban 20 mg DAILY@17 PO Last administered on 11/30/16 18:44; Admin Dose 20 MG; Start 11/29/16 at 17:00 Hydralazine HCl 5 mg Q6H PRN IV Last administered on 11/29/16 23:35; Admin Dose 5 MG; Start 11/29/16 at 01:40 Midodrine 5 mg 09,13,17 PO Last administered on 11/30/16 18:44; Admin Dose 5 MG ; Start 11/29/16 at 18:30 Lab and Diagnostics Result Diagram: 11/29/1621411/29/16214 Assessment & Plan 81-year-old female with recurrent pre-syncope and transient encephalopathic episodes of uncertain cause, presents with weakness and reduced mental status. She was reportedly hypoxic per previous notes but there is no documentation and her current cardiorespiratory status is normal. She was reported to be syncopal but does not confirm this, and she has a long history of episodic unresponsiveness. Her underlying complex conditions include dementia, depressed affect and weakness. Acute, active and/or high risk problems: #Urinary tract infection - pyuria is marginal, urine culture is negative, she is asymptomatic. She is chronically mildly abnormal UAs. - No indication for antibiotic treatment at this time #Hypoxia. Apparently resolved. - Follow clinically #Pre-syncope, encephalopathy. Her spells of unresponsiveness or part of a chronic condition which seems likely neurodegenerative in origin - EEG ordered - Orthostatic blood pressures ordered - She has outpatient neurology referral scheduled - Palliative care consult, they have previously consulted in her case. # Inadequate healthcare support. Her declining mental status and functional status appear to be too much for her . - Care management consult Resolved, chronic and/or stable issues: Hypertension Orthostatic hypotension dysautonomic syndrome Collagenous Colitis Paroxysmal a-fib Hyperlipidemia Anxiety DVT prophylaxis- continue her prior 00 Code DNR/DNI Disposition: Patient will most likely be discharged home tomorrow. At this point the patient is currently weak and would need further support at home. Patient would benefit from a group home facility or long-term care facility however at this time due to financial reasons the patient is unable to afford this particular care. There is some concerns that the patient's is not able to adequately care for the patient however services for home health and further private assistance has been provided to the patient and her . Positive carrier has been involved and agreed that the patient would benefit from follow-up with neurology. The patient does have an appointment scheduled for next month and is encouraged to keep this appointment With Dr. Oneal More. VTE Prophylaxis: Other VTE Mechanical Devices: Intermittant Pneumatic CD Resuscitation Status: DNR/DNI:Do Not Resuscitate/Intubate Padmini Parks DO Nov 30, 2016 20:16
[2016-11-30] MEDS: hydrALAZINE 20 mg/mL Inj IV PRN (20:53)
--- NOTE | 2016-11-30 22:02 | PCM.PALLBR ---
Palliative Care Recommendation This is an 81 F brought to ED per 911 due to repeated episodes of syncope today , supposed hypotension in the home. see multiple notes from previous admissions/ observations in [facility]. Family/ unable to move her, provide safe care. Summary of palliative recommendations: 11/30/16-Mixed story from complete syncope to just falling asleep, able to walk without difficulty then 1-2 days with inability to walk to BR with her walker without falls (as per her ) Reviewed with Kasey Gifford and later with Dr. More- he will ask his staff to change appt to accommodate longer appt. EEG done-and will be available to Dr. More. His initial impression was that it was mostly psychiatric issues. Reviewed antidepressant and seems that possibly only antidepressant she had a adverse rxn to was buproprion Just started on aricept at 5 mg daily. As yet no SE. Reviewed with Dr. More-he will adjust appt. ?PK like features-without a lot of sx altho gait is not tested. Will defer to Dr. More. Disposition still an issue 11/29/16-Goals of care established-she is DNR/DNI and limited interventions and she agrees this is her decision. Syncope -wondering about petite mal SZ. She does have appt with Dr. Mroe next month-she is unsure of date. Unclear if can get EEG done prior. I will call Dr. More and review. Check orthostatic BP-to standing position but I suspect this will not be cause since this episode happened while sitting. Delirium-now cleared. Might still benefit from neuropsych testing. Will start with neuro consult. Agree with Dr. Jones's plan for starting aricept and considering methylphenidate. Depression-new in onset per pt. Disposition-an issue with her finding that he cannot help her enough at home-chad with recurrent syncope. CM/SS to assist. I do not think she qualifies for hospice so that additional support is not available at this time. Per prior palliative care assessments in combination with today's visit: Depression- (per Dr. Carvalho 09/28): some concern with sense of worsening with antidepressants. Consider restarting antipsychotic as mood stabilizer. She has no psychotic sx. Would consider ongoing therapy. Would continue with ongoing psychiatric follow- up. Consider complete outpatient neuro psych evaluation 11/28/16: Revisit concern about increased/ continued depression. Follow up on neuropsych eval to see if this was done. Cognition- (per Dr. Carvalho 09/28): I think there is more of a cognitive decline and neurodegenerative process to her depression and disability than thought. Will begin aricept at 5 mg daily with goal to have this increased to 10 mg if no SE after a few weeks. Still may benefit from low dose methylphenidate-like 5 mg QAM but would postpone 11/28/16: Pt is calm and able to answer my questions appropriately. I see notes regarding evaluation for dementia recently which was negative. Symptoms continue to be confounding and related to syncopal/hemodynamic issues. Continue to monitor. Gait instability/ risk of falls from possible syncope. - Apparently interrogation of pacemaker does not support cardiac arrhythmia as cause of syncope. Does have orthostatic drop. Consider tolerating higher BP at baseline. Some concern that worsened orthostasis may come with worsened diarrhea. Need confirmation from cardiology re opinion on syncope Consider use of florinef. Diarrhea with past history of collagenous colitis sulfasalazine has been restarted. We will monitor diarrhea. No BM now for 3 days Goals of care-both and daughters are hopefully patient can be at SNF for a period of time. This would ensure medication compliance. She might also qualify for mental health follow-up [place].. Family also believes that eventually patient would go home with assistance of caregivers rather then assisted care. Patient would benefit from assisted care setting due to increase in socialization and assurance of medication compliance -DPOA/Advanced Directives/POLST- states advanced directive completed for both of them and both indicate request for no long-term heroics. Reviewed question of CODE STATUS in hospital and he believes it appropriate for DNR/DNI and he states this is based on the quality of her life at present. Patient Goals: 1. Patient wants mostly to be home but is adamant that he can no longer care for her. They are looking for transition to LTC. asking for hospice but not sure if she meets criteria. Additional Medical Diagnoses with primary management by Hospitalist team include : Problems: End of Life Preferences DNR/DNI Resuscitation Status Resuscitation Status: DNR/DNI:Do Not Resuscitate/Intubate POLST Updates/Changes Artificially Admin Nutrition: No Artifical Nutrition by Tube Total time [50 ] minutes; >50% face to face with patient and/or family, providing counselling regarding plans and recommendations, and in care coordination with his/her medical teams. I also spent an additional [ ] minutes counseling for advanced care planning with the patient/the patients family/the surrogate decision maker. Palliative Brief Note Date of Service Nov 30, 2016 . Patient seen with her at bedside. She is clearly disturbed by his adamant declarations about her hx but her hx is also not completely accurate. He melds complete syncope -not arousable with also episodes of falling asleep in the morning and not out of bed until noon-"because she doesn't want to " She is upset about refusing to take her amlodipine and midodrine yest and her BP increased O: BP ranging 104 to 175/ and not consistent change with orthostatic change. lungs clear Cor- no edema, RR neuro- flat to distressed affect, overly distressed re declining her medications yest concepcion but doesn't remember getting her meds this AM no tremor, CN = Kellie Carvalho MD Nov 30, 2016 22:02
[2016-12-01] VITALS (8 sets, daily range): BP systolic 122–154; BP diastolic 62–89; PULSE 69–76; RESP 15–20; O2SAT 96–97
--- NOTE | 2016-12-01 03:39 | NUR ---
MENTATION At 2030 assessments, pt expressed frustration with being in the hospital and was withdrawn from care. A&Ox4 at 2030, but pt doesn't understand why she is still in the hospital. At 0030, pt needed to use BR. PATTERNMAKER GRADER helped up and noted unsteady gait when standing so assisted to BSC instead. Pt confused and does not know where she is, but is easy to reorient. Pt again expressed anxiety and frustration with current situation, and commented on "we are forcing her to stay here." Pt educated on why she is still here and how she needs to have help in place when she discharges to help with her care. [place] in place. Continuing care.
[2016-12-01] MEDS: Sulfasalzine 500 mg Tablet PO SCH ×2 (08:49→20:38)
--- NOTE | 2016-12-01 13:30 | NUR ---
Social Work: Continued Discharge Planning: Underwriting Manager attempted to call patient Stephan DURHAM [phone], but there was no answer. SW left a message with her name and number requesting a call back. SW will continue to follow. MOOKIE Guerra, ACM
--- NOTE | 2016-12-01 13:48 | NUR ---
Palliative Care - LATE ENTRY for 11/28/16 Palliative Care received verbal order from Sohail Tejada DO 11/28/16 to assist with goals of care. Patient is an 81 year old woman who was admitted 11/28/16. Patient's asked to speak with the Palliative Care Team who saw patient multiple times during her recent admission in 09/2016. Patient lives home with . Stephan Moses () [phone] Laisha Wilmar (daughter) [phone], Palliative Care to follow. Homa Lopez
--- NOTE | 2016-12-01 15:49 | PCM.PALLBR ---
Palliative Care Recommendation This is an 81 F brought to ED per 911 due to repeated episodes of syncope today , supposed hypotension in the home. see multiple notes from previous admissions/ observations in [facility]. Family/ unable to move her, provide safe care. Summary of palliative recommendations: 12/01/16--Reviewed issues with patient and her . Reviewed sx and concerns and w/u up to now with Dr. More who will try and move her appt. Etiology of syncope remains unclear. Depression remains significant. Consideration for methylphenidate 5 mg AM would not have complications from his standpoint. She has appt with cardiology which her plans to cancel and postpone She has an appt with Dr. Xiong which she will keep if discharged today. SS/CM still working with insurance re possible placement vs home with . 11/30/16-Mixed story from complete syncope to just falling asleep, able to walk without difficulty then 1-2 days with inability to walk to BR with her walker without falls (as per her ) Reviewed with Kasey Gifford and later with Dr. More- he will ask his staff to change appt to accommodate longer appt. EEG done-and will be available to Dr. More. His initial impression was that it was mostly psychiatric issues. Reviewed antidepressant and seems that possibly only antidepressant she had a adverse rxn to was buproprion Just started on aricept at 5 mg daily. As yet no SE. Reviewed with Dr. More-he will adjust appt. ?PK like features-without a lot of sx altho gait is not tested. Will defer to Dr. More. Disposition still an issue 11/29/16-Goals of care established-she is DNR/DNI and limited interventions and she agrees this is her decision. Syncope -wondering about petite mal SZ. She does have appt with Dr. More next month-she is unsure of date. Unclear if can get EEG done prior. I will call Dr. More and review. Check orthostatic BP-to standing position but I suspect this will not be cause since this episode happened while sitting. Delirium-now cleared. Might still benefit from neuropsych testing. Will start with neuro consult. Agree with Dr. Jones's plan for starting aricept and considering methylphenidate. Depression-new in onset per pt. Disposition-an issue with her finding that he cannot help her enough at home-chad with recurrent syncope. CM/SS to assist. I do not think she qualifies for hospice so that additional support is not available at this time. Per prior palliative care assessments in combination with today's visit: Depression- (per Dr. Carvalho 09/28): some concern with sense of worsening with antidepressants. Consider restarting antipsychotic as mood stabilizer. She has no psychotic sx. Would consider ongoing therapy. Would continue with ongoing psychiatric follow- up. Consider complete outpatient neuro psych evaluation 11/28/16: Revisit concern about increased/ continued depression. Follow up on neuropsych eval to see if this was done. Cognition- (per Dr. Carvalho 09/28): I think there is more of a cognitive decline and neurodegenerative process to her depression and disability than thought. Will begin aricept at 5 mg daily with goal to have this increased to 10 mg if no SE after a few weeks. Still may benefit from low dose methylphenidate-like 5 mg QAM but would postpone 11/28/16: Pt is calm and able to answer my questions appropriately. I see notes regarding evaluation for dementia recently which was negative. Symptoms continue to be confounding and related to syncopal/hemodynamic issues. Continue to monitor. Gait instability/ risk of falls from possible syncope. - Apparently interrogation of pacemaker does not support cardiac arrhythmia as cause of syncope. Does have orthostatic drop. Consider tolerating higher BP at baseline. Some concern that worsened orthostasis may come with worsened diarrhea. Need confirmation from cardiology re opinion on syncope Consider use of florinef. Diarrhea with past history of collagenous colitis sulfasalazine has been restarted. We will monitor diarrhea. No BM now for 3 days Goals of care-both and daughters are hopefully patient can be at SNF for a period of time. This would ensure medication compliance. She might also qualify for mental health follow-up [place].. Family also believes that eventually patient would go home with assistance of caregivers rather then assisted care. Patient would benefit from assisted care setting due to increase in socialization and assurance of medication compliance -DPOA/Advanced Directives/POLST- states advanced directive completed for both of them and both indicate request for no long-term heroics. Reviewed question of CODE STATUS in hospital and he believes it appropriate for DNR/DNI and he states this is based on the quality of her life at present. Patient Goals: 1. Patient wants mostly to be home but is adamant that he can no longer care for her. They are looking for transition to LTC. asking for hospice but not sure if she meets criteria. Additional Medical Diagnoses with primary management by Hospitalist team include : Problems: End of Life Preferences DNR/DNI Goals of Care Still working on disposition-home vs SNF. I think [facility] SNF would be helpful but financially unfeasible at this point. Resuscitation Status Resuscitation Status: DNR/DNI:Do Not Resuscitate/Intubate POLST Updates/Changes Artificially Admin Nutrition: No Artifical Nutrition by Tube . Symptom management: Depression, Delirium Total time 60 minutes; >50% face to face with patient and/or family, providing counselling regarding plans and recommendations, and in care coordination with his/her medical teams. including coordination of care with discussion with Dr. Xiong, Derik Parks and pt/family I also spent an additional [ ] minutes counseling for advanced care planning with the patient/the patients family/the surrogate decision maker. copies to: Oneal Xiong DO Palliative Brief Note Date of Service Dec 01, 2016 . Patient is more confused. Perseverates on why in the hospital, what meds are what etc. Patient states she "did not do very well" getting up with PT-feels weaker. is hesitant to take her home due to his concern that it remains unclear why she becomes weak, why she passes out and recognizes they have had many ER visits and hospital visits. He is now focusing on "episode" at [facility] where he states she had low BP, weakness and AMS and "she still hasn't recovered." He also states that she hasn't been to the counsellor or psychiatrist in months- he didn't think they were helping her and blamed a number of the medication for her sx-although unable to delineate sx. O: pt is alert, furrowed brow, does seem more confused. Kellie Carvalho MD Dec 01, 2016 15:49
--- NOTE | 2016-12-01 19:25 | NUR ---
Mentation Patient pleasant, A/O x3. No episodes of confusion this shift. Dr. Carvalho will contact Dr. Xiong for future discharge plan. home support worker will follow up in the morning. Will continue to monitor.
--- NOTE | 2016-12-01 20:49 | PCM.PNMED ---
Subjective Date of Service Dec 01, 2016 Subjective Patient was seen and examined at bedside today patient complained only of weakness. Exam Vital Signs Vital Sign - Last Date Time Temp Pulse Resp B/P Pulse Ox O2 Delivery O2 Flow Rate FiO2 12/01/16 20:39 36.7 69 16 154/76 97 Room Air 11/29/16 06:12 2.00 Intake and Output 11/30/16 11/30/16 12/01/16 Cumulative From/Thru 15:00 23:00 07:00 11/28/16 11:35 - 12/01/16 06:04 Intake Total 1070 ml 230 ml 5305 ml Output Total 150 ml 2900 ml Balance 1070 ml 80 ml 2405 ml Intake Oral 1070 ml 200 ml 2240 ml IV Total 30 ml 3065 ml Output Urine Total 150 ml 2900 ml # Voids 2 2 # Bowel Movements 1 Exam Physical Exam: GEN: Patient was awake, alert, responding appropriately to questions HEENT: PERRLA, EOMI, Neck soft supple, trachea midline, nomocephalic/atraumatic CV: +S1/S2, RRR, no murmurs auscultated Respiratory: CTAB, no wheezes, rales, rhonchi GI: +bowel sounds x4, soft, compressible, non TTP EXT: no c/c/e Neuro: CN II-XII grossly intact Psych: mood and affect were appropriate IVs and Medications Medications Reviewed: Medications were reviewed in detail Lab and Diagnostics Result Diagram: 11/29/1621411/29/16214 Assessment & Plan 81-year-old female with recurrent pre-syncope and transient encephalopathic episodes of uncertain cause, presents with weakness and reduced mental status. She was reportedly hypoxic per previous notes but there is no documentation and her current cardiorespiratory status is normal. She was reported to be syncopal but does not confirm this, and she has a long history of episodic unresponsiveness. Her underlying complex conditions include dementia, depressed affect and weakness. Acute, active and/or high risk problems: Urinary tract infection - pyuria is marginal, urine culture is negative, she is asymptomatic. She is chronically mildly abnormal UAs. - No indication for antibiotic treatment at this time Hypoxia. Apparently resolved. - Follow clinically Pre-syncope, encephalopathy. Her spells of unresponsiveness or part of a chronic condition which seems likely neurodegenerative in origin - EEG ordered - Orthostatic blood pressures ordered - She has outpatient neurology referral scheduled - Palliative care consult, they have previously consulted in her case. Inadequate healthcare support. Her declining mental status and functional status appear to be too much for her . - Care management consult Resolved, chronic and/or stable issues: Hypertension Orthostatic hypotension dysautonomic syndrome Collagenous Colitis Paroxysmal a-fib Hyperlipidemia Anxiety DVT prophylaxis Code DNR/DNI Disposition: Patient will most likely be discharged tomorrow. Patient will either go to intermediate facility or home. VTE Prophylaxis: Other VTE Mechanical Devices: Intermittant Pneumatic CD Resuscitation Status: DNR/DNI:Do Not Resuscitate/Intubate Time spent Greater than 35min Padmini Parks DO Dec 01, 2016 20:49
[2016-12-02 04:41] VITALS: BP 135/68; PULSE 68; RESP 16; O2SAT 94
--- NOTE | 2016-12-02 05:17 | NUR ---
MENTATION Pt pleasant all shift with no occurrences of remarkable confusion, though is still withdrawn and is very soft spoken. At beginning of shift, pt used FWW to BR with only SBA and did well. Hourly rounding in place.
[2016-12-02 05:44] VITALS: PULSE 70
[2016-12-02 08:00] VITALS: PULSE 73
[2016-12-02] MEDS: Sulfasalzine 500 mg Tablet PO SCH (08:37)
[2016-12-02 08:42] VITALS: BP 129/71; PULSE 86; RESP 16; O2SAT 95
[2016-12-02 09:58] VITALS: BP 121/61; PULSE 96; RESP 19; O2SAT 92
--- NOTE | 2016-12-02 10:00 | NUR ---
ORTHOSTATIC BP Time 1000 Lying- 121/61 Sitting- 94/42 Standing- 79/48 Addendum: 12/02/16 at 1247 by ANGIE FLEMING RN NEURO- Appears withdrawn, 1PA severino [facility]- Telly V paced, Ortho BP see above PLUM-RA GI- Heart healthy -BM 12/01 SKIN-Bruise left temporal, Hx falls PAIN-Denies IV-S/L PLAN- D/C home vs SNF, f/u neuro
--- NOTE | 2016-12-02 11:09 | NUR ---
Spoke with FREIGHT TALLIER and patient will need to have [facility] denial if patient is wanting to go SNF private pay. PT is now recommending home with home health and there potentially is no other skilled need at this time. Addendum: 12/02/16 at 1138 by RAFA LYNN CM Called and spoke with Vivienne Jernigan CM at [facility] [phone] and she is going to review patient and see is she meets for nursing needs. Updated FREIGHT TALLIER Addendum: 12/02/16 at 1353 by RAFA LYNN CM Gave access and referral to [facility] and [facility] per FREIGHT TALLIER Addendum: 12/02/16 at 1434 by RAFA LYNN CM [facility] can accept with [facility] auth in place
--- NOTE | 2016-12-02 11:20 | PCM.PALLBR ---
Palliative Care Recommendation This is an 81 F brought to ED per 911 due to repeated episodes of syncope today , supposed hypotension in the home. see multiple notes from previous admissions/ observations in [facility]. Family/ unable to move her, provide safe care. Summary of palliative recommendations: 12/02/16- Goals of care have been established. and pt would both prefer transfer to SNF for continued monitoring and treatment once her acute management is optimized. Still significant orthostatic drop in BP despite midodrine. BP is labile at rest but has not been malignantly high. Consider tolerance of HTN--ie no antihypertensives. Neurology appt is now end of the month. Dr. More cautions regarding the potential worsening of orthostasis with any antiPK meds but can also be seen with aricept (altho he acknowledges much less likely) Consider any modality to minimize ortho drop- knee or thigh high support hose, increased salt in diet, cont of midodrine etc. At this point I would not complicate issues with starting the stimulant methylphenidate and focus on the orthostasis. More intense psych management can proceed when this is better managed. At this point Palliative Care will sign off. Let us know if there is a change in status or concern regarding GOC that we might be able to assist with. 12/01/16--Reviewed issues with patient and her . Reviewed sx and concerns and w/u up to now with Dr. More who will try and move her appt. Etiology of syncope remains unclear. Depression remains significant. Consideration for methylphenidate 5 mg AM would not have complications from his standpoint. She has appt with cardiology which her plans to cancel and postpone She has an appt with Dr. Xiong which she will keep if discharged today. SS/CM still working with insurance re possible placement vs home with . 11/30/16-Mixed story from complete syncope to just falling asleep, able to walk without difficulty then 1-2 days with inability to walk to BR with her walker without falls (as per her ) Reviewed with Kasey Gifford and later with Dr. More- he will ask his staff to change appt to accommodate longer appt. EEG done-and will be available to Dr. More. His initial impression was that it was mostly psychiatric issues. Reviewed antidepressant and seems that possibly only antidepressant she had a adverse rxn to was buproprion Just started on aricept at 5 mg daily. As yet no SE. Reviewed with Dr. More-he will adjust appt. ?PK like features-without a lot of sx altho gait is not tested. Will defer to Dr. More. Disposition still an issue 11/29/16-Goals of care established-she is DNR/DNI and limited interventions and she agrees this is her decision. Syncope -wondering about petite mal SZ. She does have appt with Dr. More next month-she is unsure of date. Unclear if can get EEG done prior. I will call Dr. More and review. Check orthostatic BP-to standing position but I suspect this will not be cause since this episode happened while sitting. Delirium-now cleared. Might still benefit from neuropsych testing. Will start with neuro consult. Agree with Dr. Jones's plan for starting aricept and considering methylphenidate. Depression-new in onset per pt. Disposition-an issue with her finding that he cannot help her enough at home-chad with recurrent syncope. CM/SS to assist. I do not think she qualifies for hospice so that additional support is not available at this time. Per prior palliative care assessments in combination with today's visit: Depression- (per Dr. Carvalho 09/28): some concern with sense of worsening with antidepressants. Consider restarting antipsychotic as mood stabilizer. She has no psychotic sx. Would consider ongoing therapy. Would continue with ongoing psychiatric follow- up. Consider complete outpatient neuro psych evaluation 11/28/16: Revisit concern about increased/ continued depression. Follow up on neuropsych eval to see if this was done. Cognition- (per Dr. Carvalho 09/28): I think there is more of a cognitive decline and neurodegenerative process to her depression and disability than thought. Will begin aricept at 5 mg daily with goal to have this increased to 10 mg if no SE after a few weeks. Still may benefit from low dose methylphenidate-like 5 mg QAM but would postpone 11/28/16: Pt is calm and able to answer my questions appropriately. I see notes regarding evaluation for dementia recently which was negative. Symptoms continue to be confounding and related to syncopal/hemodynamic issues. Continue to monitor. Gait instability/ risk of falls from possible syncope. - Apparently interrogation of pacemaker does not support cardiac arrhythmia as cause of syncope. Does have orthostatic drop. Consider tolerating higher BP at baseline. Some concern that worsened orthostasis may come with worsened diarrhea. Need confirmation from cardiology re opinion on syncope Consider use of florinef. Diarrhea with past history of collagenous colitis sulfasalazine has been restarted. We will monitor diarrhea. No BM now for 3 days Goals of care-both and daughters are hopefully patient can be at SNF for a period of time. This would ensure medication compliance. She might also qualify for mental health follow-up in [facility].. Family also believes that eventually patient would go home with assistance of caregivers rather then assisted care. Patient would benefit from assisted care setting due to increase in socialization and assurance of medication compliance -DPOA/Advanced Directives/POLST- states advanced directive completed for both of them and both indicate request for no long-term heroics. Reviewed question of CODE STATUS in hospital and he believes it appropriate for DNR/DNI and he states this is based on the quality of her life at present. Patient Goals: 1. Patient wants mostly to be home but is adamant that he can no longer care for her. They are looking for transition to LTC. asking for hospice but not sure if she meets criteria. Additional Medical Diagnoses with primary management by Hospitalist team include : Problems: End of Life Preferences DNR/DNI Goals of Care Still working on disposition-home vs SNF. I think skilled nursing SNF would be helpful but financially unfeasible at this point. Resuscitation Status Resuscitation Status: DNR/DNI:Do Not Resuscitate/Intubate POLST Updates/Changes Artificially Admin Nutrition: No Artifical Nutrition by Tube Total time [30 ] minutes; >50% face to face with patient and/or family, providing counselling regarding plans and recommendations, and in care coordination with his/her medical teams. Including discussion with patient and her and team. She will not be making her appt with Dr. Xiong today. I also spent an additional [ ] minutes counseling for advanced care planning with the patient/the patients family/the surrogate decision maker. Palliative Brief Note Date of Service Dec 02, 2016 . Patient has the sense that she is weak and this is relating to feeling weak when up. She does not feel particularly depressed. states he can't take her home if she is not able to walk or is likely to again pass out. Last Hydralazine dosing concepcion of 1/18 She continues on midodrine tid and atenolol 25 mg qd O: BP 121/61 dropping to 79/48 remains oriented--had confusion last night-not unusual for her. She is clearer and more spontaneous this am than yest afternoon labs 11/29 OK EEG done but no report yet. Kellie Carvalho MD Dec 02, 2016 11:20
[2016-12-02 12:30] VITALS: BP 134/76; PULSE 79; RESP 16; O2SAT 95
--- NOTE | 2016-12-02 14:58 | NUR ---
[facility] denied patient for transfer to SNF this will be delivered to the by Vivienne Jernigan CM at [facility]. Updated [employer]
--- NOTE | 2016-12-02 15:45 | PCM.DIMED ---
Discharge Instructions Date of Service Dec 02, 2016 Dates of Hospitalization Nov 28, 2016 at 16:58 Discharge Diagnosis Discharge Diagnosis Urinary tract infection Hypoxia. Pre-syncope, encephalopathy. Diet No restrictions Activity Other (gradually return to normal activity as tolerated) Call your provider Fever or Chills, Shortness of breath, Bleeding, Chest pain, Weakness (unilateral ) Patient Instructions . Follow-up plan It has been suggested that you obtain an EEG as it is possible that you may be suffering from some seizure like activity. Please arrange this with Dr. More or your PCP Dr. Xiong. Follow-up with PCP in: 1 week Provider: Oneal More MD Follow-up in: 3 weeks (if an appointment has not already been made please call and schedule appointment. It is important that he maintain this appointment. ) Padmini Parks DO Dec 02, 2016 15:45
[2016-12-02] MEDS ORDERED: ONDA4TAB6 PO (15:54)
--- NOTE | 2016-12-02 16:06 | PCM.DC.MED ---
Discharge Summary Date of Service Dec 02, 2016 Dates of Hospitalization Date of Hospital Admission Nov 28, 2016 at 16:58 Date of Discharge: Dec 02, 2016 Providers: Admitting Physician: Almaz Lopez MD Primary Care Physician: Oneal Xiong DO Attending Physician: Almaz Lopez MD Diagnosis at Time of Discharge Diagnosis at Time of Discharge Urinary tract infection Hypoxia. Pre-syncope, encephalopathy. Brief History 81-year-old female with recurrent pre-syncope and transient encephalopathic episodes of uncertain cause, presents with weakness and reduced mental status. She was reportedly hypoxic per previous notes but there is no documentation and her current cardiorespiratory status is normal. She was reported to be syncopal but does not confirm this, and she has a long history of episodic unresponsiveness. Her underlying complex conditions include dementia, depressed affect and weakness. Hospital Course 81-year-old female with recurrent pre-syncope and transient encephalopathic episodes of uncertain cause, presents with weakness and reduced mental status. She was reportedly hypoxic per previous notes but there is no documentation and her current cardiorespiratory status is normal. She was reported to be syncopal but does not confirm this, and she has a long history of episodic unresponsiveness. Her underlying complex conditions include dementia, depressed affect and weakness. Acute, active and/or high risk problems: Urinary tract infection - pyuria is marginal, urine culture is negative, she is asymptomatic. She is chronically mildly abnormal UAs. - No indication for antibiotic treatment at this time Hypoxia. Apparently resolved. - Follow clinically Pre-syncope, encephalopathy. Her spells of unresponsiveness or part of a chronic condition which seems likely neurodegenerative in origin - EEG ordered - Orthostatic blood pressures ordered - She has outpatient neurology referral scheduled - Palliative care consult, they have previously consulted in her case. Inadequate healthcare support. Her declining mental status and functional status appear to be too much for her . - Care management consult Resolved, chronic and/or stable issues: Hypertension Orthostatic hypotension dysautonomic syndrome Collagenous Colitis Paroxysmal a-fib Hyperlipidemia Anxiety DVT prophylaxis Disposition: Patient has been difficult to manage as she is still having episodes of unsteadiness but does not meet PT qualifications for a SNF placement. The patient and her have some concerns about him being able to take care of her at home. There are also concerns that the patient may be having some seizure like activity and an EEG is recommended. Patient will be sent home with home health services as well as a list of private pay home health services to supplement the home health services provided by her insurance company. Exam Vital Signs (Last) Date Time Temp Pulse Resp B/P Pulse Ox O2 Delivery O2 Flow Rate FiO2 12/02/16 12:30 36.8 79 16 134/76 95 Room Air 11/29/16 06:12 2.00 Test 11/28/16 12:11 11/28/16 12:22 11/28/16 18:41 11/29/16 02:15 Magnesium Level 2.1mg/dL (1.6-2.6) Urine Color Straw (YELLOW) Urine Appearance Hazy (CLEAR,HAZY) Urine pH 7.5 (5.0-8.0) Urine Specific [place] 1.010 (1.003-1.035) Urine Protein Negativemg/dL (NEG,TRACE) Urine Glucose (UA) Negativemg/dL (NEGATIVE) Urine Ketones Negativemg/dL (NEGATIVE) Urine Occult Blood Negative (NEGATIVE) Urine Nitrite Negative (NEGATIVE) Urine Bilirubin Negative (NEGATIVE) Urine Urobilinogen Normalmg/dL (NORMAL) Urine Leukocyte Esterase Negative (NEGATIVE) Urine RBC 0-2/hpf (0-2) Urine WBC 6-10/hpf (0-5) Urine Epithelial Cells Occasional/hpf (NONE-MOD) Urine Crystals None seen (NONE SEEN) Urine Bacteria Moderate/hpf (NONE-FEW) Urine Hyaline Casts None/lpf (NONE) Urine Granular Casts None seen (NONE SEEN) Urine Waxy Casts None seen (NONE SEEN) Urine Red Blood Cell Casts None seen (NONE SEEN) Urine White Blood Cell Casts None seen (NONE SEEN) Urine Mucus None seen (None Seen) Urine Trichomonas None seen (NONE SEEN) Urine Yeast None (NONE SEEN) Urinalysis Comment None Urine Culture Reflexed Indicated Pro-B-Type Natriuretic Peptide 221.4pg/mL (0-738) White Blood Count 5.5th/mm3 (3.8-10.1) Red Blood Count 3.80mil/mm3 (3.90-5.20) Hemoglobin 11.8g/dL (12.0-15.6) Hematocrit 35.1% (35.0-46.0) Mean Corpuscular Volume 92.4fL (81-100) Mean Corpuscular Hemoglobin 31.1pg (27.0-35.0) Mean Corpuscular Hemoglobin Concent 33.6% (32.0-37.0) Red Cell Distribution Width 12.9% (12.3-15.4) Platelet Count 289bil/L (150-400) Neutrophils (%) (Auto) 52.9% (40-74) Lymphocytes (%) (Auto) 31.9% (14-46) Monocytes (%) (Auto) 13.5% (4-12) Eosinophils (%) (Auto) 1.1% (0-5) Basophils (%) (Auto) 0.4% (0-3) Sodium Level 139mEq/L (134-144) Potassium Level 4.3mEq/L (3.5-5.2) Chloride Level 101mEq/L (97-108) Carbon Dioxide Level 26mmol/L (18-29) Blood Urea Nitrogen 15mg/dL (8-27) Creatinine 0.62mg/dL (0.57-1.00) Estimat Glomerular Filtration Rate 133mL/min (>59) Glucose Level 101mg/dL (60-99) Calcium Level 9.5mg/dL (8.5-10.1) Total Bilirubin 0.6mg/dL (0.0-1.2) Aspartate Amino Transf (AST/SGOT) 15U/L (0-50) Alanine Aminotransferase (ALT/SGPT) 18U/L (0-32) Alkaline Phosphatase 61U/L (25-165) Total Protein 6.5g/dL (6.4-8.4) Albumin 4.2g/dL (3.4-5.0) Test 11/29/16 10:25 Troponin T < 0.010ug/L (0.0-0.011) Discharge Medications Discharge Medications Atenolol (Atenolol) 25 Mg Tablet 25 MG PO DAILY (Reported) Atorvastatin (Lipitor) 10 Mg Tab 10 MG PO HS (Reported) Escitalopram Oxalate (Escitalopram Oxalate) 5 Mg Tablet 10 MG PO QAM (Reported) Midodrine (Midodrine) 5 Mg Tablet 5 MG PO DAILY (Reported) Rivaroxaban (Xarelto) 20 Mg Tablet 20 MG PO HS (Reported) Sulfasalazine (Sulfasalazine) 500 Mg Tablet 500 MG PO BID (Reported) As needed Ondansetron (Zofran) 4 Mg Tablet 4 MG PO Q4H PRN PRN For Nausea Prescribed by: ROSALINO BRAN DO Followup Plan Follow-up plan It has been suggested that you obtain an EEG as it is possible that you may be suffering from some seizure like activity. Please arrange this with Dr. More or your PCP Dr. Xiong. Discharge Diet: No restrictions Discharge Activity: Other (gradually return to normal activity as tolerated) Patient Instructions . Follow-up Provider: Oneal Xiong DO Follow-up with PCP in: 1 week Provider: Oneal More MD Follow-up in: 3 weeks (if an appointment has not already been made please call and schedule appointment. It is important that he maintain this appointment. ) copies to: Oneal Xiong DO; Oneal More MD, Precious L DO Dec 02, 2016 16:06
--- NOTE | 2016-12-02 16:55 | NUR ---
Social Work Continued Discharge Planning: SW spoke with patient and regarding plan of care. Plan is SNF placement at [facility] vs [facility], pending [facility] auth. Per Ur Specialist, patient denied placement for SNF via [facility]. SW spoke patient and who was made aware. Patient to transport patient home. Patient in agreement to HH service via [facility], [phone]. SW spoke to located within [facility] Jesse who confirmed that patient current and aware of discharge today. STOC to begin on Monday for resumption of care services. SW received phone call from patient daughter Maral, regarding plan of care. Patient daughter expressed concerns with patient going home and 's limited abilities to caring for patient needs. SW met with patient at bedside to discuss and patient denied any risks with going home with . Patient states plan as home with and continued HHC service support. Patient states having no available funds for rehab private pay or caregiver private pay. SW to follow. PLAN: Home with continued HHC services via [facility] with STOC on Monday. [facility] denied placement. Patient has no available funds for private pay HHC not caregiver support. Adalberto IRVING
--- NOTE | 2016-12-02 18:41 | NUR ---
DISCHARGE Patient discharged at 1730 left with who will drive her home. Prior to leaving patient stated twice that she felt safe at home. Patient appeared to nurse to be nervous about going home. Patient denies pain, shortness of breath and nausea. IV catheter removed intact and medications reviewed with patient and who verbalized understanding.
--- NOTE | 2016-12-03 14:51 | PROCED ---
[address] [address] EEG PATIENT: DA GILLIAM : 1935 MR#: [id number] ADMIT: 11/28/2016 JOB ID: [id number] DATE OF SERVICE: 11/30/2016 HISTORY: The patient is an 81-year-old woman with spells. TECHNICAL DESCRIPTION: This digital EEG was recorded using 25 scalp and ear, and two EKG electrodes. It was reviewed in bipolar and referential montages following reformatting in the [employer] System. During the recording, the patient was noted to be awake, drowsy. The background was composed of a 7 hertz posterior dominant rhythm that attenuated with eye opening. It appeared symmetrical. The rest of the background was composed of low voltage faster frequencies. There was abundant intermixed slowing throughout this recording. There were no focal, lateralized, or epileptiform discharges noted. There were no seizures seen. Hyperventilation was not performed due to heart disease. Photic stimulation from 1-30 hertz did not elicit any photic driving response. Sleep was not appreciated during this recording. The EKG rhythm strip revealed a heart rate of 60-80 beats per minute, with no apparent arrhythmias. There was a mild degree of myogenic and movement artifact. IMPRESSION: This EEG performed in the awake and drowsy states is abnormal. The slow background rhythm is suggestive of mild cerebral cortical dysfunction/encephalopathy. This is very nonspecific. It can be seen also in the setting of neurodegenerative disorders. It may also be seen in the setting of toxic metabolic, hypoxia, inflammatory, autoimmune, and infectious states. There were no focal, lateralized, or epileptiform discharges noted. There were no seizures seen. If clinically indicated, a repeat study capturing the transition to and from sleep states and sleep states may be warranted. Clinical correlation is advised.
== END 2016-12-02 17:32 | disposition home health service (06) ==
LOC: SED 11:30 → MOC 16:58
PROVIDERS: ADMIT Urology; ATTEND Urology
DX: N39.0 Urinary tract infection, site not specified (principal); R09.02 Hypoxemia; R55 Syncope and collapse; G93.40 Encephalopathy, unspecified; I10 Essential (primary) hypertension; K52.831 Collagenous colitis; I48.0 Paroxysmal atrial fibrillation; E78.5 Hyperlipidemia, unspecified; F03.90 Unspecified dementia, unspecified severity, without behavioral disturbance, psychotic disturbance, mood disturbance, and anxiety; F41.9 Anxiety disorder, unspecified; I45.10 Unspecified right bundle-branch block; F32.9 Major depressive disorder, single episode, unspecified; Z87.891 Personal history of nicotine dependence; Z95.0 Presence of cardiac pacemaker; Z66 Do not resuscitate; Z79.01 Long term (current) use of anticoagulants
CPT/HCPCS: 36415; 51701; 71010; 80053; 81000; 83735; 83880; 84484; 85025; 87086; 87088; 93005; 94664; 95816; 96361; 96365; 96375; 96376; 97116; 97162; 97530; 99285; G0378; J0360; J1644; J7030; J7620